=== PATIENT | male | born 1940 | race Caucasian/White ===

== ENCOUNTER 2017-06-12 20:22 | Emergency (ER) | payer MEDICARE, OTHER ==
[~2017-06-12] VITALS: Ht 175.3 cm; Wt 80.0 kg
[~2017-06-12 20:22] MED LIST: AMLO10 PO; ASPI81 PO; ATOR80TA41 PO; CARV6.25 PO; ISOS30 PO; LISI10 PO; PLAV75TA PO; RANI150T PO; RANO500 PO; SYNT88TA PO; TAMS0.4C67 PO
[2017-06-12 20:26] VITALS: BP 130/68; PULSE 65; RESP 16; TEMP 97.7; O2SAT 95
[2017-06-12] MEDS ORDERED: TAMS5CAP PO (21:56)
[2017-06-12] MEDS ORDERED: LISI10TA3 PO (21:56)
[2017-06-12] MEDS ORDERED: PLAV75TA29 PO (21:56)
[2017-06-12] MEDS ORDERED: ASPI81CH CHEW (21:56)
[2017-06-12] MEDS ORDERED: SYNT88TA PO (21:56)
[2017-06-12] MEDS ORDERED: LIPI80TA PO (21:56)
[2017-06-12] MEDS ORDERED: AMLO10TA2 PO (21:56)
[2017-06-12] MEDS ORDERED: TETANUS/DIPHTHERIA TOXOID ADULT 0.5 ML VIAL IM ONE (22:00)
--- NOTE | 2017-06-12 22:03 | PD ---
HPI Chief Complaint: Fall Time Seen by Provider: 21:45 Travel History International Travel<30 days: No Contact w/Intl Traveler<30days: No Traveled to known affect area: No History of Present Illness HPI The patient is a 76-year-old male who presents to the emergency department for closed head injury. The patient states he was walking in a parking lot when he tripped over a curb and fell forward. The patient states he struck his left elbow and then his head on the concrete. He denies any loss of consciousness, complains of a mild headache. He does complain of an abrasion over the left aspect of the head and left elbow. He is able to move the left upper extremity without any difficulty. Patient denies any neck pain, chest pain, shortness breath, nausea, vomiting, abdominal pain, lightheadedness , or dizziness. He does take Plavix for history of coronary artery disease with previous stent placement. The patient's primary physician is Dr. Thorne. Symptoms are mild to moderate, exacerbated after falling, and mostly self alleviating. Last tetanus shot is unknown. PFSH Past Medical History Hx Anticoagulant Therapy: Yes (PLAVIX ) Heart Rhythm Problems: No Cancer: No Cardiac Catheterization: No Cardiovascular Problems: Yes (CAD) High Cholesterol: Yes Cerebrovascular Accident: Yes (2005) Diabetes: Yes (PRE) Diminished Hearing: No Diverticulitis: Yes Endocrine: Yes GERD: Yes Genitourinary: Yes Hiatal Hernia: Yes Hypertension: Yes Immune Disorder: No Musculoskeletal: No Neurologic: No Psychiatric: No Reproductive: No Respiratory: No Myocardial Infarction: Yes (05/2016) Thyroid Disease: No Past Surgical History Coronary Artery Bypass Graft: No Coronary Stent: Yes (06/2016) Other Surgery: No Social History Alcohol Use: Yes ("VERY MODERATE") Tobacco Use: No Substance Use: No Allergies-Medications (Allergen,Severity, Reaction): Coded Allergies: No Known Allergies (Unverified , 06/12/17) Reported Meds & Prescriptions Reported Meds & Active Scripts Active Reported Lisinopril 10 Mg Tab 10 Mg PO DAILY Plavix (Clopidogrel Bisulfate) 75 Mg Tab 75 Mg PO DAILY Lipitor (Atorvastatin Calcium) 80 Mg Tab 80 Mg PO HS Aspirin 81 Mg Chew 81 Mg CHEW DAILY Synthroid (Levothyroxine Sodium) 88 Mcg Tab 88 Mcg PO DAILY Flomax (Tamsulosin HCl) 0.4 Mg Cap 0.4 Mg PO HS Amlodipine (Amlodipine Besylate) 10 Mg Tab 10 Mg PO DAILY Review of Systems Except as stated in HPI: all other systems reviewed are Neg General / Constitutional: No: Fever HENT: Positive: Headaches, No: Lightheadedness, Neck Pain Cardiovascular: No: Chest Pain or Discomfort Respiratory: No: Shortness of Breath Gastrointestinal: No: Nausea, Vomiting, Abdominal Pain Musculoskeletal: No: Weakness Skin: Positive Other (abrasions to left forehead and left elbow) Neurologic: Positive: Headache, No: Dizziness, Change in Mentation, Paresthesia , Sensory Disturbance Physical Exam Narrative GENERAL: Awake, alert, pleasant 76-year-old male who appears his stated age and is in no acute respiratory distress. SKIN: Superficial abrasions above the left orbit as well as over the extensor surface of left elbow. HEAD: Superficial abrasions above the left orbit. EYES: Pupils equal and round. Pupils are 3 mm bilateral and reactive. EOMs are intact. Patient is able to see fingers at a distance of 2 feet without difficulty. ENT: No nasal bleeding or discharge. Mucous membranes pink and moist. NECK: Trachea midline. No JVD. No tenderness of the cervical vertebrae. CARDIOVASCULAR: Regular rate and rhythm. No murmur appreciated. RESPIRATORY: No accessory muscle use. Clear to auscultation. Breath sounds equal bilaterally. GASTROINTESTINAL: Abdomen soft, non-tender, nondistended. No rebound tenderness. MUSCULOSKELETAL: Superficial abrasion over the extensor surface the left elbow. The patient is able fully flex and extend the left elbow as well as supinate and pronate the left forearm. Return Checker strength is 5 out of 5 bilaterally. Flexion extension left elbow is 5 out of 5. Patient is able fully flex and extend the hips and knees. He is able to ambulate. NEUROLOGICAL: Awake and alert. No obvious cranial nerve deficits. Motor grossly within normal limits. Normal speech. Nonfocal. Oriented 4. Follows commands without difficulty. PSYCHIATRIC: Appropriate mood and affect; insight and judgment normal. Data Data Last Documented VS Vital Signs Date Time Temp Pulse Resp B/P (MAP) Pulse Ox O2 Delivery O2 Flow Rate FiO2 06/12/17 23:05 54 20 160/74 (102) 95 Room Air 06/12/17 20:[address] Brain W/O Iv Contrast(Rout) (8/23/17 ) Wound Care (06/12/17 21:50) Tetanus/Diphtheria Tox Adult (Tetanus/Di (06/12/17 22:00) MDM Medical Decision Making Medical Screen Exam Complete: Yes Emergency Medical Condition: Yes Medical Record Reviewed: Yes Interpretation(s) Last Impressions Head CT 06/12/17 0000 Signed Impressions: Service Date/Time: Monday, June 12, 2017 22:38 - CONCLUSION: 1. No acute findings. 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 Tritsin Bernal MD Differential Diagnosis Differential diagnosis includes closed head injury, intracranial hemorrhage, skull fracture, subarachnoid hemorrhage, subdural hemorrhage, coagulopathy, abrasion. Narrative Course CT of the brain was obtained. The patient had his tetanus shot updated. The patient's wounds were cleaned with soap and water and Polysporin was applied. CT reveals no acute findings, remote old infarcts noted. The patient is stable for outpatient follow-up. He will be provided a copy of his CT results at discharge. Diagnosis Primary Impression: Closed head injury Qualified Codes: S09.90XA - Unspecified injury of head, initial encounter Additional Impression: Multiple abrasions Patient Instructions: General Instructions Additional Instructions: Wound care instructions, clean wounds twice a day with soap and water, probably Polysporin. Please provide the patient a copy of his CT results at discharge. Return if symptoms worsen or progress. Med/Other Pt SpecificInfo: No Change to Meds Disposition: 01 DISCHARGE HOME Condition: Stable Oskar Perry MD Jun 12, 2017 22:03
[2017-06-12 23:05] VITALS: BP 160/74; PULSE 54; RESP 20; O2SAT 95
--- NOTE | 2017-06-12 23:10 | RADRPT ---
EXAM DATE/TIME: 06/12/2017 22:38 [facility] COMPARISON: No previous studies available for comparison. INDICATIONS : Trauma, patient fell hitting head, laceration left side of forehead. RADIATION DOSE: 56.35 CTDIvol (mGy) MEDICAL HISTORY : Hypertension. Cerebrovascular disease. SURGICAL HISTORY : None. ENCOUNTER: Initial ACUITY: 1 day PAIN SCALE: 0/10 LOCATION: Left cranial TECHNIQUE: Multiple contiguous axial images were obtained of the head. Using automated exposure control and adj ustment of the mA and/or kV according to patient size, radiation dose was kept as low as reasonably a chievable to obtain optimal diagnostic quality images. DICOM format image data is available electro nically for review and comparison. FINDINGS: There is a remote small infarct in the right parietal lobe and right cerebellar hemisphere. No acute cranial mass, hemorrhage or midline shift. No recent infarction identified. No acute bony abnormaliti es. CONCLUSION: 1. No acute findings. 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 Tristin Bernal MD on June 12, 2017 at 23:04 Board Certified Radiologist. This report was verified electronically.
== END 2017-06-13 01:02 | disposition home or self-care (01) ==
LOC: NEPE 20:22
DX: S09.90XA Unspecified injury of head, initial encounter (principal); S00.81XA Abrasion of other part of head, initial encounter; S50.312A Abrasion of left elbow, initial encounter; I10 Essential (primary) hypertension; R73.03 Prediabetes; E78.00 Pure hypercholesterolemia, unspecified; I25.2 Old myocardial infarction; W01.0XXA Fall on same level from slipping, tripping and stumbling without subsequent striking against object, initial encounter; Y93.01 Activity, walking, marching and hiking; Y92.481 Parking lot as the place of occurrence of the external cause; Z23 Encounter for immunization; Z79.01 Long term (current) use of anticoagulants; Z86.79 Personal history of other diseases of the circulatory system; Z87.19 Personal history of other diseases of the digestive system; Z87.448 Personal history of other diseases of urinary system
CPT/HCPCS: 70450; 90471; 90714